=== PATIENT | female | born 1950 | race African-American/Black ===

== ENCOUNTER 2020-04-20 16:17 | Observation (INO) ==
[2020-04-20 18:34] LABS: Basophils % 0.5 % (0.0-0.8); Eosinophils % 0.7 % (0.00-10.9); Hematocrit 37.2 VOL% (35.7-47.0); Hemoglobin 12.2 GM/DL (12.0-16.0); Immature Granulocytes % 0.2 %; Immature Granulocytes Absolute 0.01 #; Lymphocytes # 1.4 10*3/uL (1.4-4.0); Mean Corpuscular HGB Conc 32.8 GM/DL (32-36); Mean Platelet Volume 9.6 FL (9.6-12.0); Monocytes % 7.1 % (1.7-12.7); Neutrophils % 56.5 % (38.7-73.9); Platelet Count 211 T/CUMM (130-400); Red Blood Count 4.71 MC/CUMM (3.8-5.5); Red Cell Distribution Width 13.9 % (9.3-17.3); White Blood Count 4.1 T/CUMM (4-12)
[2020-04-20 18:50] LABS: INR 1.2; PT Patient Result 12.4 SECS (9.8-11.9); Partial Thromboplastin Time 31.9 SECS (23.9-33.8)
[2020-04-20 19:04] LABS: Albumin 3.8 G/DL (3.4-5.0); Bilirubin,Total 0.4 MG/DL (0.2-1.0); Calcium 9.5 MG/DL (8.5-10.1); Osmolality,Calculated 278.4 MOS/KG (273-304)
[2020-04-20] MEDS ORDERED: GLUCAGON 1 MG VIAL IM PRN (21:20)
[2020-04-20] MEDS ORDERED: ONDANSETRON 4 MG/2 ML VIAL IV PRN (21:20)
[2020-04-20] MEDS ORDERED: DEXTROSE 50% 25 GM/50 ML VIAL IV PRN (21:20)
[2020-04-20] MEDS ORDERED: MORPHINE 4 MG/1 ML VIAL IV PRN (21:20)
[2020-04-20] MEDS ORDERED: SODIUM CHLORIDE 0.9% 1,000 ML IV SCH (21:30)
[2020-04-21 05:25] LABS: Basophils % 0.6 % (0.0-0.8); Eosinophils # 0.1 10*3/uL (0.0-0.87); Eosinophils % 1.1 % (0.00-10.9); Hematocrit 35.1 VOL% (35.7-47.0); Hemoglobin 11.5 GM/DL (12.0-16.0); Immature Granulocytes % 0.2 %; Immature Granulocytes Absolute 0.01 #; Lymphocytes # 1.4 10*3/uL (1.4-4.0); Lymphocytes % 26.8 % (21.3-54.2); Mean Corpuscular HGB Conc 32.8 GM/DL (32-36); Mean Corpuscular Volume 79.4 FL (87-102); Mean Platelet Volume 9.3 FL (9.6-12.0); Monocytes % 9.6 % (1.7-12.7); Neutrophils % 61.7 % (38.7-73.9); Platelet Count 196 T/CUMM (130-400); Red Blood Count 4.42 MC/CUMM (3.8-5.5); Red Cell Distribution Width 13.8 % (9.3-17.3); White Blood Count 5.3 T/CUMM (4-12)
[2020-04-21 05:35] LABS: Osmolality,Calculated 281.3 MOS/KG (273-304)
[2020-04-21] MEDS ORDERED: RIVAROXABAN 20 MG TABLET PO SCH (08:00)
[2020-04-21] MEDS ORDERED: hydroCHLOROthiazide 25 MG TABLET PO SCH (09:00)
[2020-04-21] MEDS ORDERED: LOSARTAN 50 MG TABLET PO SCH (09:00)
[2020-04-21] MEDS ORDERED: PRAZOSIN 1 MG CAPSULE PO SCH (09:00)
[2020-04-21] MEDS ORDERED: FLECAINIDE 100 MG TABLET PO SCH (09:00)
[2020-04-21] MEDS ORDERED: buPROPion SR 150 MG TABLET PO SCH (09:00)
[2020-04-21] MEDS ORDERED: PANTOPRAZOLE 40 MG TABLET PO SCH (09:00)
[2020-04-21 12:06] VITALS: BP 148/79
[2020-04-21 21:34] LABS: Risk Ratio 2.43; VLDL CHOLESTEROL 13.6 MG/DL
== END 2020-04-21 17:35 | disposition home or self-care (01) ==
LOC: N.ED 16:17 → N.EDINP 16:17 → N.4E 04-21 00:33
PROVIDERS: ADMIT Internal Medicine; ATTEND Internal Medicine

== ENCOUNTER 2021-07-06 21:45 | Inpatient (IN) ==
[2021-07-06 22:44] LABS: Basophils % 0.2 % (0.0-0.8); Eosinophils % 0.6 % (0.00-10.9); Hematocrit 35.9 VOL% (35.7-47.0); Hemoglobin 11.4 GM/DL (12.0-16.0); Immature Granulocytes % 0.5 %; Immature Granulocytes Absolute 0.03 #; Lymphocytes # 2.3 10*3/uL (1.4-4.0); Lymphocytes % 36.6 % (21.3-54.2); Mean Corpuscular HGB Conc 31.8 GM/DL (32-36); Mean Corpuscular Volume 78.2 FL (87-102); Mean Platelet Volume 9.3 FL (9.6-12.0); Monocytes % 7.2 % (1.7-12.7); Neutrophils % 54.9 % (38.7-73.9); Platelet Count 228 T/CUMM (130-400); Red Blood Count 4.59 MC/CUMM (3.8-5.5); Red Cell Distribution Width 14.6 % (9.3-17.3); White Blood Count 6.3 T/CUMM (4-12)
[2021-07-06 22:57] LABS: Alanine Aminotransferase 23 U/L (13-56); Albumin 3.4 G/DL (3.4-5.0); Alkaline Phosphatase 62 U/L (45-117); Aspartate Amino Transferase 30 U/L (0-37); Bilirubin,Total < 0.39 MG/DL (0.20-1.00); Blood Urea Nitrogen 11 MG/DL (7-18); Calcium 9.3 MG/DL (8.5-10.1); Carbon Dioxide 29 MMOL/L (21-32); Estimated Glom Filtration Rate 64 ML/MIN; Glucose 181 MG/DL (74-106); Osmolality,Calculated 286.1 MOS/KG (273-304); Potassium 3.5 MMOL/L (3.5-5.1); Sodium 142 MMOL/L (136-145); Total Protein 7.1 G/DL (6.4-8.2)
[2021-07-07] MEDS ORDERED: MAGNESIUM SULF RIDER 4 GM/100 ML PREMIX IV PRN (03:02)
[2021-07-07] MEDS ORDERED: MAGNESIUM SULF RIDER 2 GM/50 ML PREMIX IV PRN (03:02)
[2021-07-07] MEDS ORDERED: POTASSIUM CHLORIDE RIDER 10 MEQ/100 ML PREMIX IV PRN (03:02)
[2021-07-07] MEDS ORDERED: hydrALAZINE 20 MG/1 ML VIAL IV PRN (03:56)
[2021-07-07] MEDS ORDERED: GLUCAGON 1 MG VIAL IM PRN (03:56)
[2021-07-07] MEDS ORDERED: ONDANSETRON 4 MG/2 ML VIAL IV PRN (03:56)
[2021-07-07] MEDS ORDERED: DEXTROSE 50% 25 GM/50 ML SYRINGE IV PRN (03:56)
[2021-07-07] MEDS ORDERED: ACETAMINOPHEN 325 MG TABLET PO PRN (03:56)
[2021-07-07] MEDS ORDERED: SIMETHICONE CHEW 125 MG TABLET PO PRN (03:56)
[2021-07-07 04:36] LABS: Basophils % 0.4 % (0.0-0.8); Eosinophils # 0.1 10*3/uL (0.0-0.87); Eosinophils % 1.4 % (0.00-10.9); Hematocrit 35.5 VOL% (35.7-47.0); Hemoglobin 11.4 GM/DL (12.0-16.0); Immature Granulocytes % 0.4 %; Immature Granulocytes Absolute 0.02 #; Lymphocytes # 2.2 10*3/uL (1.4-4.0); Lymphocytes % 39.5 % (21.3-54.2); Mean Corpuscular HGB Conc 32.1 GM/DL (32-36); Mean Corpuscular Volume 78.4 FL (87-102); Mean Platelet Volume 9.5 FL (9.6-12.0); Monocytes % 7.6 % (1.7-12.7); Neutrophils % 50.7 % (38.7-73.9); Platelet Count 233 T/CUMM (130-400); Red Blood Count 4.53 MC/CUMM (3.8-5.5); Red Cell Distribution Width 14.5 % (9.3-17.3); White Blood Count 5.7 T/CUMM (4-12)
[2021-07-07 05:00] LABS: Calcium 9.3 MG/DL (8.5-10.1); Osmolality,Calculated 284.8 MOS/KG (273-304); Potassium 3.5 MMOL/L (3.5-5.1); Risk Ratio 2.54; Thyroid Stimulating Hormone 1.37 uIU/ml (0.358-3.74)
[2021-07-07] MEDS: SODIUM CHLORIDE 0.45% 1,000 ML IV SCH ×2 (05:39→21:38)
[2021-07-07] MEDS: INSULIN REGULAR 100 UNIT/ML SUBCUT SCH ×4 (08:39→20:40)
[2021-07-07] MEDS ORDERED: hydroCHLOROthiazide 25 MG TABLET ONE (09:16)
[2021-07-07] MEDS: hydroCHLOROthiazide 25 MG TABLET PO SCH (09:26)
[2021-07-07] MEDS: LOSARTAN 50 MG TABLET PO SCH ×2 (09:26→21:32)
[2021-07-07] MEDS: PRAZOSIN 1 MG CAPSULE PO SCH ×2 (10:30→21:33)
[2021-07-07] MEDS: FLECAINIDE 100 MG TABLET PO SCH ×2 (10:30→21:31)
[2021-07-07] MEDS: PANTOPRAZOLE 40 MG TABLET PO SCH (11:25)
[2021-07-07] MEDS: DOCUSATE SODIUM 100 MG CAPSULE PO SCH ×2 (11:25→21:33)
[2021-07-07] MEDS: ASPIRIN EC 81 MG TABLET PO SCH (14:54)
[2021-07-08 05:28] LABS: Basophils % 0.4 % (0.0-0.8); Eosinophils # 0.1 10*3/uL (0.0-0.87); Eosinophils % 1.9 % (0.00-10.9); Hematocrit 34.1 VOL% (35.7-47.0); Hemoglobin 10.7 GM/DL (12.0-16.0); Immature Granulocytes % 0.2 %; Immature Granulocytes Absolute 0.01 #; Lymphocytes % 37.2 % (21.3-54.2); Mean Corpuscular HGB Conc 31.4 GM/DL (32-36); Mean Corpuscular Volume 79.7 FL (87-102); Mean Platelet Volume 8.8 FL (9.6-12.0); Monocytes % 7.7 % (1.7-12.7); Neutrophils % 52.6 % (38.7-73.9); Platelet Count 203 T/CUMM (130-400); Red Blood Count 4.28 MC/CUMM (3.8-5.5); Red Cell Distribution Width 14.3 % (9.3-17.3); White Blood Count 5.3 T/CUMM (4-12)
[2021-07-08 05:54] LABS: Calcium 8.8 MG/DL (8.5-10.1); Osmolality,Calculated 285.8 MOS/KG (273-304); Potassium 3.6 MMOL/L (3.5-5.1)
[2021-07-08 06:05] LABS: Calcium 8.7 MG/DL (8.5-10.1); Potassium 3.9 MMOL/L (3.5-5.1)
[2021-07-08] MEDS ORDERED: TISSUE ADHESIVE 1 EACH APPLICATOR TOP ONE (06:58)
[2021-07-08] MEDS ORDERED: LIDOCAINE 1%/EPI INJ 20 ML VIAL ONE (06:58)
[2021-07-08] MEDS: SODIUM CHLORIDE 0.45% 1,000 ML IV SCH ×2 (08:13→10:30)
[2021-07-08] MEDS: hydroCHLOROthiazide 25 MG TABLET PO SCH (09:36)
[2021-07-08] MEDS: FLECAINIDE 100 MG TABLET PO SCH (09:36)
[2021-07-08] MEDS: PANTOPRAZOLE 40 MG TABLET PO SCH (09:36)
[2021-07-08] MEDS: DOCUSATE SODIUM 100 MG CAPSULE PO SCH (09:40)
[2021-07-08] MEDS: LOSARTAN 50 MG TABLET PO SCH (09:40)
[2021-07-08] MEDS: POTASSIUM CHLORIDE 20 MEQ TABLET PO PRN ×2 (09:40→14:58)
[2021-07-08] MEDS: PRAZOSIN 1 MG CAPSULE PO SCH (09:41)
[2021-07-08] MEDS: INSULIN REGULAR 100 UNIT/ML SUBCUT SCH ×2 (09:49→11:23)
[2021-07-08] MEDS ORDERED: MAGNESIUM OXIDE 400 MG TABLET PO ONE (10:02)
[2021-07-08 10:28] VITALS: BP 157/75
[2021-07-08] MEDS: ASPIRIN EC 81 MG TABLET PO SCH (14:58)
[2021-07-08] MEDS ORDERED: MAGNESIUM OXIDE 400 MG TABLET PO SCH (21:00)
[2021-07-09] MEDS ORDERED: POTASSIUM CHLORIDE 10 MEQ TABLET PO SCH (09:00)
[2021-07-09] MEDS ORDERED: hydroCHLOROthiazide 12.5 MG CAPSULE PO SCH (09:00)
== END 2021-07-08 15:33 | disposition home or self-care (01) | DRG 261 ==
LOC: N.EDINP 21:45 → N.ED 21:45 → SUATTDRO 07-07 08:41 → N.TELES 07-07 16:30
PROVIDERS: ADMIT Internal Medicine; ATTEND Emergency Medicine

== ENCOUNTER 2022-04-29 14:49 | Observation (INO) ==
[2022-04-29] MEDS ORDERED: ONDANSETRON ODT 4 MG TABLET PO ONE (15:58)
[2022-04-29 17:06] LABS: Basophils % 0.2 % (0.0-0.8); Eosinophils % 0.3 % (0.00-10.9); Hematocrit 34.2 VOL% (35.7-47.0); Hemoglobin 11.1 GM/DL (12.0-16.0); Immature Granulocytes % 0.2 %; Immature Granulocytes Absolute 0.01 #; Lymphocytes # 1.5 10*3/uL (1.4-4.0); Lymphocytes % 24.4 % (21.3-54.2); Mean Corpuscular HGB Conc 32.5 GM/DL (32-36); Mean Corpuscular Volume 79.4 FL (87-102); Mean Platelet Volume 9.2 FL (9.6-12.0); Monocytes # 0.4 10*3/uL (0.11-0.8); Monocytes % 5.9 % (1.7-12.7); Platelet Count 225 T/CUMM (130-400); Red Blood Count 4.31 MC/CUMM (3.8-5.5); Red Cell Distribution Width 14.6 % (9.3-17.3); White Blood Count 6.3 T/CUMM (4-12)
[2022-04-29 17:20] LABS: Calcium 9.6 MG/DL (8.5-10.1); Osmolality,Calculated 282.3 MOS/KG (273-304); Potassium 3.9 MMOL/L (3.5-5.1)
[2022-04-29] MEDS ORDERED: DEXTROSE 10% 250 ML BAG IV PRN (19:37)
[2022-04-29] MEDS ORDERED: ONDANSETRON 4 MG/2 ML VIAL IV PRN (19:37)
[2022-04-29] MEDS ORDERED: ZALEPLON 5 MG CAPSULE PO PRN (19:37)
[2022-04-29] MEDS ORDERED: GLUCAGON 1 MG VIAL IM PRN (19:37)
[2022-04-29] MEDS: SODIUM CHLORIDE 0.45% 1,000 ML IV SCH (20:30)
[2022-04-29] MEDS: FLECAINIDE 100 MG TABLET PO SCH ×2 (22:24→22:49)
[2022-04-29] MEDS: PRAZOSIN 1 MG CAPSULE PO SCH (22:49)
[2022-04-30 06:01] LABS: Basophils % 0.3 % (0.0-0.8); Eosinophils # 0.1 10*3/uL (0.0-0.87); Eosinophils % 1.7 % (0.00-10.9); Hematocrit 32.7 VOL% (35.7-47.0); Hemoglobin 10.6 GM/DL (12.0-16.0); Immature Granulocytes % 0.2 %; Immature Granulocytes Absolute 0.01 #; Mean Corpuscular HGB Conc 32.4 GM/DL (32-36); Mean Corpuscular Volume 78.4 FL (87-102); Mean Platelet Volume 9.4 FL (9.6-12.0); Monocytes # 0.5 10*3/uL (0.11-0.8); Monocytes % 7.7 % (1.7-12.7); Neutrophils % 56.1 % (38.7-73.9); Platelet Count 222 T/CUMM (130-400); Red Blood Count 4.17 MC/CUMM (3.8-5.5); Red Cell Distribution Width 14.6 % (9.3-17.3); White Blood Count 5.8 T/CUMM (4-12)
[2022-04-30 06:23] LABS: Calcium 9.4 MG/DL (8.5-10.1); Osmolality,Calculated 285.8 MOS/KG (273-304); Potassium 3.7 MMOL/L (3.5-5.1); Thyroid Stimulating Hormone 1.19 uIU/ml (0.358-3.74)
[2022-04-30] MEDS ORDERED: RIVAROXABAN 20 MG TABLET PO SCH (08:00)
[2022-04-30] MEDS ORDERED: LOSARTAN 50 MG TABLET PO SCH (09:00)
[2022-04-30] MEDS ORDERED: DIVALPROEX ER 250 MG TABLET PO SCH (09:00)
[2022-04-30] MEDS ORDERED: POLYETHYLENE GLYCOL POWDER 17 GM PACK PO SCH (09:00)
[2022-04-30] MEDS: FLECAINIDE 100 MG TABLET PO SCH (10:01)
[2022-04-30] MEDS: PRAZOSIN 1 MG CAPSULE PO SCH (10:01)
[2022-04-30] MEDS: SODIUM CHLORIDE 0.45% 1,000 ML IV SCH (10:03)
[2022-04-30] MEDS ORDERED: hydroCHLOROthiazide 25 MG TABLET PO SCH (12:00)
[2022-04-30] MEDS ORDERED: POTASSIUM CHLORIDE 20 MEQ TABLET PO SCH (12:00)
[2022-04-30 12:41] VITALS: BP 155/74
== END 2022-04-30 15:25 | disposition home or self-care (01) ==
LOC: N.ED 14:49 → N.EDINP 14:49 → N.TELES 22:01
PROVIDERS: ADMIT Internal Medicine; ATTEND Internal Medicine